=== PATIENT | male | born 1990 | race Caucasian/White ===

== ENCOUNTER → 2017-05-06 | Day surgery (SDC) | payer OTHER ==
[~2017-05-06] VITALS: Ht 185.4 cm; Wt 95.3 kg
[~2017-05-06] MED LIST: BUPIVACAINE HCL 0.25% 30 ML VIAL As Ordered ONE; GLYCOPYRROLATE INJ 0.2 MG/ML 2 ML VIAL As Ordered ONE; KETOROLAC 30 MG/ML VIAL (J1885) IV SCH; KETOROLAC 60 MG/2 ML VIAL (J1885) As Ordered ONE; LIDOCAINE 1% SDV INJ 30 ML VIAL As Ordered ONE; LIDOCAINE 2% INJ 100 MG/5 ML SDV (FOR ANES.) As Ordered ONE; LR 1,000 ML IV ONE; LR 1,000 ML IV SCH; METOCLOPRAMIDE INJ 10MG/2ML VIAL (J2765) IV PRN; MIDAZOLAM INJ 2 MG/2 ML VIAL (J2250) As Ordered ONE; NEOSTIGMINE 1MG/ML 5 ML SYRINGE (J2710) As Ordered ONE; NORCO, ANEXSIA 5/325MG TABLET (HYDROcodone/ACETAMINOPHEN) PO PRN; ONDANSETRON 4MG/2ML VIAL (J2405) As Ordered ONE; ONDANSETRON 4MG/2ML VIAL (J2405) IV PRN; PERCOCET 5MG/325MG TAB PO PRN; PROMETHAZINE INJ 25 MG/ML VIAL (J2550) As Ordered ONE; PROMETHAZINE INJ 25 MG/ML VIAL (J2550) IV PRN; PROPOFOL 200 MG/20 ML VIAL As Ordered ONE; ROCURONIUM BROMIDE 50 MG/5 ML VIAL/SYRINGE As Ordered ONE; dexameTHASONE 4 MG/ML 1ML VIAL (J1100) As Ordered ONE; fentaNYL 250 MCG/5 ML INJECTION (J3010) As Ordered ONE
[2017-05-06] MEDS: MEPERIDINE INJ 25 MG/ML VIAL (J2175) IV PRN ×2 (10:30→10:35)
[2017-05-06] MEDS: fentaNYL 100 MCG/2 ML INJECTION (J3010) IV PRN ×4 (10:40→10:55)
--- NOTE | 2017-05-06 14:04 | ROOPDOC ---
[facility] Report Of Operation Report of Operation DATE OF PROCEDURE: 05/06/17 PREPROCEDURE DIAGNOSES: right inguinal hernia POSTPROCEDURE DIAGNOSES: right small direct inguinal hernia. PROCEDURE: Robotic assisted laparoscopic right ingunal hernia repair. SURGEON: Kaila Roberts MD PREVENTIVE MEDICINE PHYSICIAN: Nicholas Greene NP ANESTHESIA: general ESTIMATED BLOOD LOSS: Approximately 10 mL. COMPLICATIONS: none REMARKS: no indirect hernia, small fat containing direct hernia PROCEDURE NOTE: large 3d-max light mesh placed DESCRIPTION OF PROCEDURE: Patient received 2 g of Ancef IV preoperatively for wound prophylaxis. Patient was brought to the operating room, placed supine on the operating table. Compression boots placed in both lower extremities for DVT prophylaxis. After adequate general anesthesia started, he was placed on a lithotomy position. A reyna catheter placed without difficulty. His abdomen and groin/pelvic area then prepped and draped in the usual sterile fashion. After a surgical timeout we began our surgery Entry to the abdomen done through a small incision above the umbilical skin cleft. A Veress needle is inserted on a controlled fashion. CO2 insufflation started to pressure 15 mmHg. Using the same incision a 5 mm Visiport was then placed under direct vision of laparoscope. The insertion site was inspected for injury and none was found. Patient was then positioned on a Trendelenburg position with the symptomatic (left) side tilted upwards for adequate view of the hernia defect. 2 working ports placed to the right and left of the umbilicus along the same line. The da Charly robot to our was then positioned in between the patient's legs and the trochars doctor onto the robot. I then unscrubbed and to control of the camera and the laparoscopic instruments at the surgeon's console.. OPERATIVE FINDINGS: No clear hernia fascial defect was noted over the indirect and direct hernia space. The preperitoneal space was dissected. There is some weakness/thinning over the direct hernia space containing limited fat tissue indenting the floor of the hernia was found consistent with a small direct hernia. The peritoneum was opened up about 3 cm above the superior edge of the fascial defect of the inguinal hernia starting at the medial umbilical ligament going in an arc-like fashion laterally towards the level of the anterior superior iliac spine. This was then dissected mostly bluntly away from the abdominal wall. On approaching the inguinal ring the a small extension of the peritoneum going towards the internal ring though not beyond the ring was pulled back into the preperitoneal space and carefully dissected off the testicular vessels and vas deferens. The contents of the inguinal canal was further dissected free and no evidence of herniating tissue was found. A small possible cord lipoma was removed. Both the testicular vessels and vas deferens were promptly identified and from the cord lipoma and followed throughout its course after exiting the inguinal ring. Over . The prep at the direct hernia space there was some thinning of the abdominal wall more prominent with the insufflation of the preperitoneal space is noted. Some lobulated fat preperitoneal tissue was dissected away from the area. I did not see any clear well-formed defect close. Preperitoneal space was dissected medially to expose the pubic tubercle up towards the symphysis pubis. The remaining areolar fibers were bluntly dissected away from the abdominal wall to create space for the mesh. After fully dissecting the preperitoneal space, we checked for adequate hemostasis. A large sized 3-D Max light mesh was chosen. This was placed through the laparoscopic port into the abdomen. This was positioned in the preperitoneal space abutting the abdominal wall to adequately cover the indirect as well as direct hernia space. I made sure the mesh was laying flat on the abdominal wall. This was secured onto the pubic tubercle with a single stitch of 2-0 Vicryl. Again after checking for hemostasis the preperitoneal space was then closed by suturing the peritoneal incision using a running stitch of 2-0V LOC. . Prior to coming out a survey of the abdomen was done to make sure no inadvertent injury occurred. I then scrubbed back in. The abdomen was deflated and all ports removed. The 3 incisions were closed with 4-0 Monocryl in a subcuticular fashion. Dermabond was used for dressing. Reyna catheter was removed. Patient was then promptly awakened and extubated and brought to the recovery room stable . All counts of sponges and instruments were verified correct. DONTE ROBERTS MD May 06, 2017 14:04
[2017-05-06 15:51] VITALS: BP 141/67
== END ==
LOC: M SDC 05:42
PROVIDERS: ATTEND Surgery
DX: K40.90 Unilateral inguinal hernia, without obstruction or gangrene, not specified as recurrent (principal)
CPT/HCPCS: 49650; C1781; J0690; J1100; J1885; J2175; J2250; J2405; J2710; J2765; J3010